=== PATIENT | female | born 1990 | race Caucasian/White ===

== ENCOUNTER 2019-08-14 08:00 | Inpatient (IN) | payer BC, OTHER ==
[2019-08-14] MEDS: ELECTROLYTE-148 SOLN 1,000 ML IV SCH ×2 (14:00→15:00)
[2019-08-14 14:14] VITALS: BMI 38.4
[2019-08-14] MEDS ORDERED: CITRIC ACID/SODIUM CITRATE 30 ML UNIT-DOSE CUP PO ONE (14:53)
--- NOTE | 2019-08-14 14:53 | HP ---
Past Medical History - Primary Care Physician PCP:: Fadi Quinones - Admission Chief Complaint: 29 yo 0 2 1 EDC 08/19/2019 EGA 39 weeks previous c/s x 1,declined . Admitted for rpt c/s History Source: Patient Limitations to Obtaining History: No Limitations - Past Medical History Pulmonary: Yes: Asthma ...: 4 ...Para: 1 ...Term: 1 ...Spon : 2 ...LMP: 11/16/18 ... Weeks Gestation by Dates: 39 ...EDC by Dates: 08/24/19 ...EDC by Sono: 08/19/19 - Past Surgical History Past Surgical History: Yes: Hx Myomectomy: No Hx Transabdominal Cerclage: No - Smoking History Smoking history: Never smoked Have you smoked in the past 12 months: No - Alcohol/Substance Use Hx Alcohol Use: No - Social History Usual Living Arrangement: Yes: With Spouse History of Recent Travel: No Home Medications - Allergies Allergies/Adverse Reactions: Allergies Allergy/AdvReac Type Severity Reaction Status Date / Time Penicillins Allergy Severe Swelling Verified 08/14/19 14:04 pineapple Allergy Severe Hives Verified 08/14/19 14:04 shellfish derived Allergy Severe Hives Verified 08/14/19 14:04 wheat Allergy Severe Hives Verified 08/14/19 14:04 Family Medical History Family Hx Cardiac Disorders: Mother Review of Systems - Review of Systems Constitutional: reports: No Symptoms Eyes: reports: No Symptoms HENT: reports: No Symptoms Neck: reports: No Symptoms Cardiovascular: reports: No Symptoms Respiratory: reports: No Symptoms Gastrointestinal: reports: No Symptoms Genitourinary: reports: No Symptoms Breasts: reports: No Symptoms Reported Musculoskeletal: reports: No Symptoms Integumentary: reports: No Symptoms Neurological: reports: No Symptoms Endocrine: reports: No Symptoms Hematology/Lymphatic: reports: No Symptoms Psychiatric: reports: No Symptoms Physical Exam - Maternity Vital Signs: Vital Signs Temperature 98.6 F 08/14/19 14:06 Pulse Rate 94 H 08/14/19 14:06 Respiratory Rate 08/14/19 14:06 Blood Pressure 111/72 08/14/19 14:06 O2 Sat by Pulse Oximetry (%) Constitutional: Yes: Well Nourished, No Distress Eyes: Yes: WNL HENT: Yes: WNL Neck: Yes: WNL Cardiovascular: Yes: WNL Lungs: Clear to auscultation Breast(s): Yes: WNL - Abdominal Exam/OB Fundal Height: 40 Number of Fetuses: Single Presentation: Vertex Contractions: No Regularity: Irritability Intensity: Unaware Monitor Mode: External Heart Rate (range): 140 Heart Rate Location: [facility] Category: I Accelerations: Uniform Decelerations: None - Vaginal Exam/OB Vaginal Bleeding: No Dilatation (cm): 1 cm Amniotic Membrane Status: Intact Presentation: Vertex/Position Station: -1 - Physical Exam Musculoskeletal: Yes: WNL Extremities: Yes: WNL Edema: Yes Edema: LLE: Trace, RLE: Trace Integumentary: Yes: WNL Deep Tendon Reflex Grade: Normal +2 Hemorrhage Risk Assessment - Risk Factors Medium Risk Factors: Yes: Prior , uterine surgery,or multiple laparotomies Risk Score: 1 Risk Level: Medium Risk Problem List - Problems (1) 39 weeks gestation of Code(s): Z3A.39 - 39 WEEKS GESTATION OF Assessment/Plan Admit to LD Cesarian delivery
[2019-08-14] MEDS ORDERED: morphine SULFATE/PF 0.5 MG/ML (2cc Syringe - QUVA) ONE (15:05)
[2019-08-14] MEDS ORDERED: CLINDAMYCIN PHOSPHATE 600 MG/4 ML VIAL ONE (15:11)
[2019-08-14] MEDS ORDERED: ONDANSETRON 4 MG/2 ML VIAL IVPUSH PRN (15:41)
[2019-08-14] MEDS ORDERED: OXYTOCIN 20 UNITS in 0.9% NS 20 UNIT/1,000 ML INFUS.BAG IV ONE (15:49)
[2019-08-14] MEDS: OXYTOCIN 20 UNITS in 0.9% NS 20 UNIT/1,000 ML INFUS.BAG IV SCH (16:00)
[2019-08-14] MEDS ORDERED: METHYLERGONOVINE MALEATE 0.2 MG/1 ML AMP IM PRN (16:40)
[2019-08-14] MEDS ORDERED: MAGNESIUM HYDROX 2400MG/30ML ORAL SUSPENSION 30 ML CUP PO PRN (16:44)
[2019-08-14] MEDS ORDERED: oxyCODONE HCL 5 MG TABLET PO PRN (16:45)
[2019-08-14] MEDS ORDERED: ACETAMINOPHEN 1000 MG/100 ML VIAL (NON FORMULARY) IVPB PRN (16:46)
--- NOTE | 2019-08-14 16:57 | OP ---
Operative Note - Note: Operative Date: 08/14/19 Pre-Operative Diagnosis: 28 yo @ 39 wks Previous c/s x 1, declined , obesity Operation: Material Controller c/s x 2 via Pfannenstiel Incision Findings: Baby boy born 99 Delayed cord clamp, cord gases and blood collected Placenta and membranes complete Post-Operative Diagnosis: Same as Pre-op Surgeon: Fadi Quinones Meter Engineer: Kamlesh Thompson Anesthesiologist/SENIOR CLINICAL DATA MANAGER: Shikha Arteaga Anesthesia: Spinal Specimens Removed: cord gases and blood Estimated Blood Loss (mls): 800 Fluid Volume Replaced (mls): 2,000 Operative Report Dictated: No
[2019-08-14] MEDS ORDERED: CLINDAMYCIN 600MG PREMIX IVPB 600 MG/50 ML BAG IVPB SCH (18:00)
[2019-08-14 18:10] LABS: CORD HCO3 20.4 mmHg (20-29)
[2019-08-14 18:11] LABS: CORD pH 7.337 (7.14-7.44)
[2019-08-14 18:17] LABS: CORD HCO3 15.6 mmHg (20-29); CORD PCO2 27.9 mmHg (30-78); CORD pH 7.366 (7.14-7.44)
[2019-08-14] MEDS: CLINDAMYCIN 600MG PREMIX IVPB 600 MG/50 ML BAG IVPB SCH (22:31)
[2019-08-15] MEDS: CLINDAMYCIN 600MG PREMIX IVPB 600 MG/50 ML BAG IVPB SCH ×2 (06:35→15:13)
[2019-08-15 07:17] LABS: BASO % 0.7 % (0-2.0); EOS % 2.7 % (0-4.5); HEMATOCRIT 33.9 % (32.4-45.2); HEMOGLOBIN 11.3 GM/dL (10.7-15.3); LYMPH % 16.4 % (8-40); MCHC 33.5 g/dl (32.0-36.0); MEAN CELL VOLUME 92.5 fl (80-96); MEAN PLT VOLUME 10.1 fl (7.5-11.1); MONO % 6.5 % (3.8-10.2); NEUT % 73.7 % (42.8-82.8); PLATELET COUNT 158 K/MM3 (134-434); RBC 3.66 M/mm3 (3.60-5.2); RDW 13.5 % (11.6-15.6); WHITE BLOOD COUNT 9.2 K/mm3 (4.0-10.0)
[2019-08-15] MEDS: OXYTOCIN 20 UNITS in 0.9% NS 20 UNIT/1,000 ML INFUS.BAG IV SCH (08:06)
[2019-08-15] MEDS: IBUPROFEN 600 MG TABLET (FP) PO PRN ×3 (09:34→21:16)
--- NOTE | 2019-08-15 09:43 | PN ---
Progress Note (short form) - Note Progress Note: 29F POD#1 c section under spinal anesthesia. pt. doing well this am. no anesthesia related complications.
[2019-08-15] MEDS: SIMETHICONE 80 MG TAB.CHEW (FP) PO PRN ×2 (16:33→21:16)
[2019-08-15] MEDS ORDERED: BISACODYL 10 MG SUPP.RECT RC PRN (16:40)
--- NOTE | 2019-08-15 18:31 | PN ---
Post Progress Note - Subjective Subjective: pt happy, c/o incisional pain Type of Delivery: Repeat C/S Vital Signs: Vital Signs Temperature 98.1 F 08/15/19 13:00 Pulse Rate 81 08/15/19 13:00 Respiratory Rate 08/15/19 14:00 Blood Pressure 114/71 08/15/19 13:00 O2 Sat by Pulse Oximetry (%) 100 08/14/19 17:08 Breast Exam: Yes: Soft Uterus: Yes: Fundus Firm, Fundus below umbilicus Incision: Yes: Dressing dry and intact Abdomen/GI: Yes: Abdomen soft, Tender Lochia: Yes: Rubra Lochia, amount: Small Extremities: Yes: Calves non-tender Perineum: Yes: Intact Activity: Ambulating - Labs Labs: CBC WBC 9.2 K/mm3 (4.0-10.0) 08/15/19 06:46 RBC 3.66 M/mm3 (3.60-5.2) 08/15/19 06:46 Hgb 11.3 GM/dL (10.7-15.3) 08/15/19 06:46 Hct 33.9 % (32.4-45.2) 08/15/19 06:46 MCV 92.5 fl (80-96) 08/15/19 06:46 MCH 31.0 pg (25.7-33.7) 08/15/19 06:46 MCHC 33.5 g/dl (32.0-36.0) 08/15/19 06:46 RDW 13.5 % (11.6-15.6) 08/15/19 06:46 Plt Count 158 K/MM3 (134-434) 08/15/19 06:46 MPV 10.1 fl (7.5-11.1) 08/15/19 06:46 Absolute Neuts (auto) 6.8 K/mm3 (1.5-8.0) 08/15/19 06:46 Neutrophils % 73.7 % (42.8-82.8) 08/15/19 06:46 Lymphocytes % 16.4 % (8-40) 08/15/19 06:46 Monocytes % 6.5 % (3.8-10.2) 08/15/19 06:46 Eosinophils % 2.7 % (0-4.5) 08/15/19 06:46 Basophils % 0.7 % (0-2.0) 08/15/19 06:46 Nucleated RBC % 0 % (0-0) 08/15/19 06:46 Problem List - Problems (1) Previous delivery affecting , delivered Code(s): O34.219 - MATERNAL CARE FOR UNSP TYPE SCAR FROM PREVIOUS DEL Assessment/Plan Ambulate Encourage
--- NOTE | 2019-08-15 18:53 | DS ---
Physical Exam-TAIL TRIMMER Vital Signs: Vital Signs Temperature 98.1 F 08/15/19 13:00 Pulse Rate 81 08/15/19 13:00 Respiratory Rate 20 08/15/19 14:00 Blood Pressure 114/71 08/15/19 13:00 O2 Sat by Pulse Oximetry (%) 100 08/14/19 17:08 Constitutional: Yes: Well Nourished, No Distress Eyes: Yes: WNL HENT: Yes: WNL Neck: Yes: WNL Cardiovascular: Yes: WNL Respiratory: Yes: WNL Gastrointestinal: Yes: WNL ...Rectal Exam: Yes: Deferred ....Post : Yes: Uterus firm, Slight lochia rubra Breast(s): Yes: WNL Musculoskeletal: Yes: WNL Extremities: Yes: WNL Edema: Yes Edema: RUE: Trace, LLE: Trace Integumentary: Yes: WNL Wound/Incision: Yes: Clean/Dry Neurological: Yes: WNL ...Motor Strength: WNL Psychiatric: Yes: WNL Labs: CBC, BMP 08/15/19 06:46 Delivery - Delivery Section: Repeat, Low Flap Transverse Type of Anesthesia: Spinal Episiotomy/Laceration: None EBL (cc): 800 Delivery, Single - Stages of Labor Date of Delivery: 08/14/19 Time of Delivery: 15:27 Time Placenta Delivered: 15:28 - Condition of Glass Cutter Helper/Log Turner Present: No Infant Gender: Male Weight: 3.345 kg Total Hours ROM (Hrs/Mins): 0/01 - 1 Minute Total Score: 9 5 Minutes Total Score: 9 - Feeding Plan Initial Plan: Exclusive throughout hospitalization Discharge Summary Problems reviewed: Yes Reason For Visit: Current Active Problems 39 weeks gestation of (Acute) Previous delivery affecting , delivered (Acute) Plan of Treatment: May shower and remove the dressing May go home tomorrow F/U in 1 wk for wound check Condition: Good - Instructions Diet, Activity, Other Instructions: regular diet May ambulate f/u in the office in 1 wk Referrals: Fadi Quinones MD [Staff Physician] - Disposition: HOME
[2019-08-16] MEDS: IBUPROFEN 600 MG TABLET (FP) PO PRN ×3 (02:15→15:33)
[2019-08-16] MEDS: SIMETHICONE 80 MG TAB.CHEW (FP) PO PRN ×2 (08:47→15:33)
[2019-08-16 09:43] VITALS: BP 119/64; PULSE 82; TEMP 97.9
--- NOTE | 2019-08-20 16:09 | PATH ---
Surgical Pathology Report Patient Name: KALEY RAMÍREZ Med. Rec. #: [id number] /Age/Gender: 1990 (Age: 29) / F Account: [id number] Location: [facility] OBS/DECK BUILDER Taken: 08/14/2019 Received: 08/15/2019 Reported: 08/20/2019 Physicians: Fadi Quinones M.D. Specimen(s) Received PLACENTA Clinical History Final Diagnosis PLACENTA, SECTION: 491 G THIRD TRIMESTER PLACENTA WITH TRIVASCULAR UMBILICAL CORD AND UNREMARKABLE PLACENTAL MEMBRANES. Electronically Signed Fabiola Jimenez M.D. Gross Description The specimen is received fresh labeled placenta and is a 491 gram, 19.5 x 18.5 x 2.7 cm. placenta with attached membranes and umbilical cord. The attached membranes are bernardo, translucent with focal opacities and insert marginally. The umbilical cord measures 17 cm. in length and averages 1.3 cm. in diameter. The cord inserts eccentrically, 4 cm. to the nearest margin. No true knots or strictures are identified. Cut surface of the umbilical cord reveals 3 vessels. The surface is lyons blue with moderate fibrin deposition and appropriate caliber vessels. The maternal surface is red-brown with focal defects. Sectioning reveals red-brown, spongy parenchyma. No lesions are identified. Counselor Supervisor sections are submitted in three cassettes as follows: 1- membrane rolls and umbilical cord; 2-3- full thickness sections of placenta. /08/19/2019 [facility]/08/19/2019
--- NOTE | 2019-08-31 21:35 | OP ---
DATE OF OPERATION: 08/14/2019 PREOPERATIVE DIAGNOSES: A 28-year-old, 4, para 1-0-2-1 at 39 weeks, previous section x1, declined vaginal after section; obesity. SURGERY/OPERATION: Repeat section x2 via Pfannenstiel incision. POSTOPERATIVE DIAGNOSES: A 28-year-old, 4, para 1-0-2-1 at 39 weeks, previous section x1, declined vaginal after section; obesity. SURGEON: Amando Sotelo MD FIRER DIESEL LOCOMOTIVE: Kamlesh Thompson MD ANESTHESIA: Spinal. ANESTHESIOLOGIST: PAYAL Sylvester COMPLICATIONS: None. ESTIMATED BLOOD LOSS: 800 mL. FLUIDS: Ringer lactate 1500 mL. URINE OUTPUT: Clear urine 150 mL at the end of the procedure. SPECIMEN: Cord gases and blood. FINDINGS: Baby boy born, Apgars 9 and 9, delayed cord clamp, cord gases and blood collected. PROCEDURE: The patient was taken to the operating room where spinal anesthesia was administered without complication. She was then prepped and draped in the usual sterile fashion in dorsal supine position with a leftward tilt. A Pfannenstiel skin incision was made with a scalpel and carried through to the underlying layer of fascia with the Bovie. The fascia was incised in the midline and the incision extended laterally with Field scissors. The superior and then inferior aspect of fascial incision was grasped with Monie clamps, elevated, and the underlying rectus muscles dissected off bluntly. The rectus muscles were then in the midline and the peritoneum visualized, tented up, and entered sharply with Metzenbaum scissors. The peritoneal incision was then extended superiorly and inferiorly with good visualization of the bladder. The bladder blade was then inserted and the vesicouterine peritoneum identified, grasped with pickups, and entered sharply with Metzenbaum scissors. This incision was extended laterally and the bladder flap created digitally. The bladder blade was then reinserted. Lower uterine segment incised in transverse fashion with the scalpel. The uterine incision was then extended laterally with bandage scissors. The bladder blade was removed, and the 's head delivered atraumatically. The nose and mouth were suctioned and the cord clamped and cut. The infant was handed off to the waiting garden tractor mechanic. Cord gases and blood collected. The placenta was then removed manually. The uterus exteriorized and cleared of all clots and debris. Uterine incision was repaired with 1-0 chromic in a running stitch, locked fashion. A second layer of the same suture was used to obtain hemostasis. The bladder flap was repaired, and the uterus returned to the abdomen. The gutters were cleared of all clot and peritoneum closed with 2-0 chromic. The fascia was reapproximated with 0 Vicryl in a running fashion, and the skin was closed with 3-0 Vicryl in subcuticular fashion. The patient tolerated the procedure well. Sponge, lap, and needle counts were correct x2. The patient was taken to the recovery room in stable condition. AMANDO SOTELO MD RP/[id number]
== END 2019-08-16 16:51 | disposition home or self-care (01) | DRG 788 ==
LOC: EDBD → JLDR 13:30 → J3W 17:25
PROVIDERS: ADMIT Obstetrics & Gynecology; ATTEND Obstetrics & Gynecology
PROC: 10D00Z1 Extraction of Products of Conception, Low, Open Approach (ICD-10-PCS; principal; 2019-08-14)
DX: O82 Encounter for cesarean delivery without indication (principal); O34.211 Maternal care for low transverse scar from previous cesarean delivery; O99.214 Obesity complicating childbirth; E66.9 Obesity, unspecified; Z88.0 Allergy status to penicillin; Z91.018 Allergy to other foods; Z37.0 Single live birth; Z3A.39 39 weeks gestation of pregnancy
CPT/HCPCS: 36415; 36600; 82803; 85025; 88307-TC; J0131